=== PATIENT | male | born 1990 | race Caucasian/White ===

== ENCOUNTER 2021-09-20 04:51 | Emergency (ER) | payer SELFPAY ==
[~2021-09-20] VITALS: Ht 172.7 cm; Wt 77.1 kg
[2021-09-20 04:52] VITALS: BP 139/84
--- NOTE | 2021-09-20 05:19 | NUR ---
xr at [facility]
--- NOTE | 2021-09-20 05:33 | NUR ---
Patient discharged with v/s stable. Written and verbal after care instructions given and explained. Patient verbalized understanding. Police placed patient in custody. All questions addressed prior to discharge. ID band removed. Advised to follow up with PMD. D/C by [id number]
[2021-09-20 05:34] VITALS: BP 139/84
== END 2021-09-20 05:33 | disposition home or self-care (01) ==
LOC: MED 04:51
DX: S80.01XA Contusion of right knee, initial encounter (principal); Z02.89 Encounter for other administrative examinations; V89.2XXA Person injured in unspecified motor-vehicle accident, traffic, initial encounter; Y93.89 Activity, other specified; Y92.89 Other specified places as the place of occurrence of the external cause; Y99.8 Other external cause status
CPT/HCPCS: 71045; 73560; 99284